=== PATIENT | female | born 1990 | race Two or more races ===

== ENCOUNTER 2016-06-03 19:37 | Emergency (ER) | payer OTHER ==
[~2016-06-03] VITALS: Ht 152.4 cm; Wt 68.2 kg
[2016-06-03 20:32] LABS: HEMATOCRIT 37.8 % (36.0-46.0); MCH 27.4 PG (29.0-34.0); MCHC 32.8 G/DL (30.0-36.0); MCV 83.6 FL (83-99); MEAN PLAT.VOLUME 9.8 uM^3 (9.5-12.4); PLATELET COUNT 262 K/uL (156-360); RBC DIS.WIDTH-CV 12.1 % (11.8-14.6); RBC DIS.WIDTH-SD 36.6 % (39-53); RED BLOOD COUNT 4.52 M/uL (3.80-5.20); WHITE BLOOD COUNT 5.9 K/uL (4.1-10.2)
[2016-06-03 20:41] LABS: CHLORIDE 104 mEq/L (99-109); POTASSIUM 3.8 mEq/L (3.7-5.4); SODIUM 139 mEq/L (136-147)
[2016-06-03 20:42] LABS: GLUCOSE 89 mg/dL (70-99)
[2016-06-03 20:44] LABS: ANION GAP 11 MEQ/L (2-14)
[2016-06-03 20:46] LABS: GFR ESTIMATE (CALCULATED) > 59 mL/min/
[2016-06-03 20:47] LABS: UREA NITROGEN (BUN) 8 mg/dL (9-23)
[2016-06-03 20:55] LABS: TROP-I INTERPRETATION NEGATIVE; TROPONIN-I < 0.01 ng/mL (0.0-0.30)
[2016-06-03 21:14] LABS: D-DIMER ELISA 0.62 mg/L FEU (< 0.57)
[2016-06-04] MEDS ORDERED: MEDROL DOSEPAK4 MG PO (00:40)
[2016-06-04] MEDS ORDERED: ULTRAM50 MG PO (00:40)
[2016-06-04 01:12] VITALS: BP 135/93
== END 2016-06-04 01:39 | disposition home or self-care (01) ==
LOC: EXP 19:37 → EME 19:37 → EXP 20:59
DX: R07.9 Chest pain, unspecified (principal); M79.602 Pain in left arm; R51 Headache; R20.0 Anesthesia of skin; R20.2 Paresthesia of skin; M79.89 Other specified soft tissue disorders
CPT/HCPCS: 71020; 71275; 80048; 84484; 85027; 85379; 93005; 93971; 99281; 99285; J1200; J2270; J7512